=== PATIENT | male | born 1990 | race African-American/Black ===

== ENCOUNTER 2016-10-12 14:47 | Emergency (ER) | payer SELFPAY ==
[~2016-10-12] VITALS: Ht 182.9 cm; Wt 81.6 kg
--- NOTE | 2016-10-12 15:06 | Emergency Room Report ---
History of Present Illness General Chief Complaint: Upper Extremity Injury Present Illness HPI The patient is a 26 old male in custody presenting for right arm pain. The patient states that he injects reason to this arm and thinks it may be infected. Patient has noticed redness and pain which began 2 days prior. Pain is described as a 8/10 dull ache to the right forearm only. The patient denies any other symptoms including fever, chills, bleeding, discharge, numbness or tingling Allergies: Coded Allergies: No Known Allergies (Unverified , 10/12/16) Patient History Past Medical History: see triage record Pertinent Family History: none Reviewed Nursing Documentation: PMH: Agreed, PSxH: Agreed Review of Systems All Other Systems: negative except mentioned in HPI Physical Exam Vital Signs Date Time Temp Pulse Resp B/P Pulse Ox O2 Delivery O2 Flow Rate FiO2 10/12/16 14:54 98.8 118 20 132/88 97 Room Air Sp02 EP Interpretation: reviewed, normal General Appearance: no apparent distress, alert, GCS 15, non-toxic Head: normocephalic, atraumatic Eyes: bilateral eye PERRL, bilateral eye normal inspection ENT: hearing grossly normal, normal pharynx, no angioedema, normal voice Respiratory: chest non-tender, lungs clear, normal breath sounds, speaking full sentences Cardiovascular #1: regular rate, rhythm, no edema Musculoskeletal: back normal, digits/nails normal, gait/station normal, normal range of motion, inflammation - R proximal forearm, tender - TTP over R proximal forearm Neurologic: alert, oriented x3, responsive, motor strength/tone normal, sensory intact, speech normal Psychiatric: judgement/insight normal, memory normal, mood/affect normal, no suicidal/homicidal ideation Skin: well hydrated, normal turgor, other - erythema to L proximal forearm Lymphatic: no adenopathy Medical Decision Making PA Attestation Dr. Sin is my supervising physician. Patient management was discussed with my supervising physician Diagnostic Impression: Primary Impression: Cellulitis Qualified Codes: L03.113 - Cellulitis of right upper limb ER Course The patient is a 26 old male in custody presenting for right arm pain Ddx considered include but not limited to insect bite, contact dermatitis, eczema, cellulitis, abscess PE: Afebrile. NAD R arm: erythema, TTP, and hot to touch over proximal forearm. SILT. No fluctuance. No bleeding or DC Pt DC'ed in custody with prescription for bactrim DS. Medically cleared. Last Vital Signs Date Time Temp Pulse Resp B/P Pulse Ox O2 Delivery O2 Flow Rate FiO2 10/12/16 14:54 98.8 118 20 132/88 97 Room Air Status: improved Disposition: HOME, SELF-CARE Condition: Improved Scripts Trimethoprim/Sulfamethoxazole 160/800* (BACTRIM DS TABLET*) 1 Each Tablet 1 TAB ORAL TWICE A DAY, #20 TAB Prov: PATTI MAZA 10/12/16 PATTI MAZA Oct 12, 2016 15:06
[2016-10-12] MEDS ORDERED: BACTRIM DS TAB1 EAC1 ORAL (15:08)
[2016-10-12 15:29] VITALS: BP 132/88
[2016-10-12 15:32] VITALS: BP 132/88
== END 2016-10-12 15:33 | disposition home or self-care (01) ==
LOC: EMR 15:09
DX: L03.113 Cellulitis of right upper limb (principal); M79.601 Pain in right arm; F17.200 Nicotine dependence, unspecified, uncomplicated
CPT/HCPCS: 99283